=== PATIENT | female | born 1975 | race Caucasian/White ===

== ENCOUNTER 2017-10-14 16:40 | Emergency (ER) | payer MEDICARE, OTHER ==
[~2017-10-14] VITALS: Ht 167.6 cm; Wt 81.5 kg
[~2017-10-14 16:40] MED LIST: ASPI-1182 PO; BUSP15 PO; CARB200T6 PO; CLON0.5T4 PO; DOCU250C91 PO; FLUD.1 PO; FLUO-191 PO; LEVE500T53 PO; LEVO125 PO; QUET200XR PO
[2017-10-14] MEDS ORDERED: PERTUSS(ACELL),DIPH,TET VAC/PF 0.5 ML VIAL IM ONE (17:00)
[2017-10-14] MEDS ORDERED: LIDOCAINE HCL 1% 10 ML VIAL INJ ONE (17:00)
[2017-10-14 17:19] LABS: BASOPHILS % (AUTO) 0.9 % (0.0-2.0); EOSINOPHILS % (AUTO) 0.7 % (1.0-6.0); HEMATOCRIT 36.8 % (36-46); HEMOGLOBIN 12.5 g/dL (12.0-16.0); LYMPHOCYTES # (AUTO) 1.5 K/uL (1.0-4.8); LYMPHOCYTES % (AUTO) 21.1 % (22.0-44.0); MEAN CORPUSCULAR HEMOGLOBIN 29.3 pg (26.0-34.0); MEAN CORPUSCULAR HGB CONC 33.9 G/dL (31.0-37.0); MEAN CORPUSCULAR VOLUME 86 fL (80-100); MONOCYTES # (AUTO) 0.5 K/uL (0.1-1.0); MONOCYTES % (AUTO) 7.6 % (2.0-9.0); NEUTROPHILS # (AUTO) 4.8 K/uL (1.8-7.7); NEUTROPHILS % (AUTO) 69.7 % (40.0-70.0); PLATELET COUNT (AUTO) 134 K/uL (150-450); RED BLOOD CELL COUNT(AUTO) 4.27 MIL/uL (4.00-5.20); RED CELL DISTRIBUTION WIDTH 12.6 % (11.5-14.5)
[2017-10-14] MEDS ORDERED: LIDOCAINE HCL 4% 50 ML SOLUTION TP ONE (17:30)
[2017-10-14 17:37] LABS: ANION GAP 8 mmol/L (8-16); CALCIUM, TOTAL 9.1 mg/dL (8.8-10.5); CARBON DIOXIDE 29 mmol/L (22-29); CHLORIDE 104 mmol/L (98-107); CREATININE 0.68 mg/dL (0.60-1.30); GLOMERULAR FILTR. RATE CALC > 60 mL/min (>60); GLUCOSE,RANDOM 98 mg/dL (70-110); POTASSIUM 4.5 mmol/L (3.5-5.1); SODIUM SERUM 141 mmol/L (136-145); UREA NITROGEN, BLOOD 14 mg/dL (7-18)
[2017-10-14 17:41] LABS: ALANINE AMINOTRANSFERASE 19 U/L (12-78); ALBUMIN 3.6 g/dL (3.4-5.0); ALKALINE PHOSPHATASE 84 U/L (46-116); ASPARTATE AMINOTRANSFERASE 18 U/L (15-37); BILIRUBIN,TOTAL 0.2 mg/dL (0.1-1.0); TOTAL PROTEIN, SERUM 7.5 g/dL (6.4-8.2)
[2017-10-14] MEDS ORDERED: LIDOCAINE HCL 2% VISCOUS 15 ML SOLUTION UDCUP PO ONE (17:45)
[2017-10-14] MEDS ORDERED: LIDOCAINE HCL 2% 5 ML JELLY TP ONE (17:45)
[2017-10-14] MEDS ORDERED: LORazepam 1 MG TABLET PO ONE (18:15)
[2017-10-14] MEDS ORDERED: LORazepam 2 MG/ML VIAL ONE (19:02)
[2017-10-14] MEDS ORDERED: LORazepam 2 MG/ML VIAL IM ONE (19:15)
[2017-10-14 19:59] VITALS: BP 121/78
== END 2017-10-14 20:02 | disposition home or self-care (01) ==
LOC: EMS 16:42
DX: S01.01XA Laceration without foreign body of scalp, initial encounter (principal); G40.909 Epilepsy, unspecified, not intractable, without status epilepticus; F31.9 Bipolar disorder, unspecified; K21.9 Gastro-esophageal reflux disease without esophagitis; I10 Essential (primary) hypertension; E03.9 Hypothyroidism, unspecified; Z79.82 Long term (current) use of aspirin; Z79.899 Other long term (current) drug therapy; W22.8XXA Striking against or struck by other objects, initial encounter; Y93.89 Activity, other specified; Y92.89 Other specified places as the place of occurrence of the external cause; Y99.8 Other external cause status
CPT/HCPCS: 12004; 36415; 80053; 84703; 85025; 90471; 90715; 96372; 99284; G0482; J2060; J3490

== ENCOUNTER 2018-06-08 19:45 | Emergency (ER) | payer MEDICARE, OTHER ==
[~2018-06-08 19:45] MED LIST changes: +CLON0.5T12 PO; -CLON0.5T4 PO; -QUET200XR PO
== END 2018-06-08 21:03 | disposition left against medical advice (07) ==
LOC: EMS 19:46
DX: R07.9 Chest pain, unspecified (principal); Z53.21 Procedure and treatment not carried out due to patient leaving prior to being seen by health care provider

== ENCOUNTER 2022-09-08 11:19 | Emergency (ER) | payer MEDICARE, OTHER ==
[~2022-09-08] VITALS: Ht 167.6 cm; Wt 72.7 kg
[~2022-09-08 11:19] MED LIST changes: -ASPI-1182 PO; +ASPI-1444 PO; -CLON0.5T12 PO; +CLON0.5T4 PO; +DOCU-350 PO; -DOCU250C91 PO; +FLUO-177 PO; -FLUO-191 PO; +LEVE500T20 PO; -LEVE500T53 PO
[2022-09-08] MEDS ORDERED: LAMO100T66 PO (11:39)
[2022-09-08] MEDS ORDERED: LACT1CAP70 PO (11:39)
[2022-09-08] MEDS ORDERED: POLY250020 PO (11:39)
[2022-09-08] MEDS ORDERED: NITR-75 PO (11:39)
[2022-09-08] MEDS ORDERED: MIDO5TAB29 PO (11:39)
[2022-09-08] MEDS ORDERED: POTA8CAP20 PO (11:39)
[2022-09-08] MEDS ORDERED: CHOL400C8 PO (11:39)
[2022-09-08] MEDS ORDERED: CRAN450T10 PO (11:39)
[2022-09-08] MEDS ORDERED: SODI100037 PO (11:39)
[2022-09-08] MEDS ORDERED: TRAZ-257 PO (11:39)
[2022-09-08] MEDS ORDERED: ASCO500C18 PO (11:39)
[2022-09-08] MEDS ORDERED: POLY510P31 PO (13:12)
[2022-09-08] MEDS ORDERED: LAMO100 PO (13:12)
[2022-09-08] MEDS ORDERED: SODIUM CHLORIDE 0.9% 1,000 ML IV ONE (13:15)
[2022-09-08 13:50] LABS: BASOPHILS % (AUTO) 0.6 % (0.0-2.0); EOSINOPHILS % (AUTO) 0.3 % (1.0-6.0); HEMATOCRIT 39.2 % (36-46); LYMPHOCYTES # (AUTO) 0.9 K/uL (1.0-4.8); LYMPHOCYTES % (AUTO) 11.8 % (22.0-44.0); MEAN CORPUSCULAR HEMOGLOBIN 29.2 pg (26.0-34.0); MEAN CORPUSCULAR HGB CONC 33.2 G/dL (31.0-37.0); MEAN CORPUSCULAR VOLUME 88 fL (80-100); MONOCYTES % (AUTO) 12.6 % (2.0-9.0); NEUTROPHILS % (AUTO) 74.7 % (40.0-70.0); PLATELET COUNT (AUTO) 148 K/uL (150-450); RED BLOOD CELL COUNT(AUTO) 4.45 MIL/uL (4.00-5.20); RED CELL DISTRIBUTION WIDTH 12.6 % (11.5-14.5)
[2022-09-08 13:58] LABS: ANION GAP 7 mmol/L (8-16); CALCIUM, TOTAL 9.4 mg/dL (8.8-10.5); CARBON DIOXIDE 32 mmol/L (22-29); CHLORIDE 100 mmol/L (98-107); CREATININE 0.82 mg/dL (0.60-1.30); GLUCOSE,RANDOM 89 mg/dL (70-110); POTASSIUM 4.4 mmol/L (3.5-5.1); SODIUM SERUM 139 mmol/L (136-145); UREA NITROGEN, BLOOD 14 mg/dL (7-18)
[2022-09-08 13:59] LABS: GLOMERULAR FILTR. RATE CALC > 60 mL/min (>60)
[2022-09-08 14:04] LABS: ALANINE AMINOTRANSFERASE 18 U/L (12-78); ALBUMIN 4.3 g/dL (3.4-5.0); ALKALINE PHOSPHATASE 121 U/L (46-116); ASPARTATE AMINOTRANSFERASE 14 U/L (15-37); BILIRUBIN,TOTAL 0.5 mg/dL (0.1-1.0); LIPASE 86 U/L (73-393); TOTAL PROTEIN, SERUM 8.9 g/dL (6.4-8.2)
[2022-09-08 14:06] LABS: LACTIC ACID 1.3 mmol/L (0.4-2.0)
[2022-09-08 14:16] LABS: APPEARANCE,URINE CLEAR (CLEAR); BILIRUBIN,URINE NEGATIVE (NEGATIVE); GLUCOSE, URINE (UA) NEGATIVE (NEGATIVE); KETONES,URINE NEGATIVE (NEGATIVE); LEUKOCYTE ESTERASE ,URINE NEGATIVE (NEGATIVE); NITRATE,URINE NEGATIVE (NEGATIVE); OCCULT BLOOD,URINE TRACE (NEGATIVE); PH,URINE 5.5 (5.0-8.0); PROTEIN,URINE TRACE mg/dL (NEGATIVE); SPECIFIC GRAVITIY, URINE 1.032 (1.003-1.030); UROBILINOGEN,URINE <=1.0 mg/dL (<=1.0)
[2022-09-08 14:21] LABS: BACTERIA,URINE None Seen /HPF (None Seen); RBC,URINE 0-2 /HPF (0-2); SQUAMOUS EPITHELIAL CELL,UR Few /LPF (None Seen); WBC,URINE None Seen /HPF (0-5)
[2022-09-08 14:28] LABS: COVID AG,FIA SOURCE NASOPHARYNGEAL
[2022-09-08] MEDS ORDERED: CefTRIAXone 1 GM/DEXTROSE 50 ML IV ONE (16:15)
[2022-09-08 17:59] VITALS: BP 152/83
[2022-09-08] MEDS ORDERED: AZIT250T9 PO (19:03)
[2022-09-08] MEDS ORDERED: ACET-66 PO (19:03)
== END 2022-09-08 19:53 | disposition home or self-care (01) ==
LOC: EMS 11:26
DX: J18.9 Pneumonia, unspecified organism (principal); F79 Unspecified intellectual disabilities; F31.9 Bipolar disorder, unspecified; I10 Essential (primary) hypertension; E03.9 Hypothyroidism, unspecified; Z98.890 Other specified postprocedural states; Z20.822 Contact with and (suspected) exposure to COVID-19
CPT/HCPCS: 99285; 93970; 96365; 76705; 71045; 96361; 87426; 80053; 81001; 83605; 83690; 84484; 84703; 85025; 85379; 87040; 36415; 93005; J0696; J7030; 51701

== ENCOUNTER 2024-06-26 08:54 | Emergency (ER) | payer MEDICARE, OTHER ==
[~2024-06-26] VITALS: Ht 162.6 cm; Wt 72.7 kg
[~2024-06-26 08:54] MED LIST changes: +ACET-66 PO; +ASCO500C18 PO; +CARB-92 PO; -CARB200T6 PO; +CHOL10CA2 PO; +CRAN450T10 PO; -DOCU-350 PO; +DOCU-412 PO; +LACT1CAP70 PO; +LAMO-24 PO; +LEVE-71 PO; -LEVE500T20 PO; +MIDO5TAB29 PO; +NITR-75 PO; +POLY510P31 PO; +POTA8CAP20 PO; +SODI100037 PO; +TRAZ-257 PO
[2024-06-26 09:01] VITALS: BP 129/68; PULSE 70; RESP 18; TEMP 97.9; O2SAT 99
[2024-06-26] MEDS ORDERED: ASCO500 PO (09:08)
[2024-06-26] MEDS ORDERED: CRAN250C PO (09:08)
[2024-06-26] MEDS ORDERED: LACT1TAB14 PO (09:08)
[2024-06-26 09:18] LABS: COVID AG,FIA SOURCE NASAL SWAB
[2024-06-26 09:40] LABS: SARS-COV2 (COVID) ANTIGEN,FIA Negative (Negative)
[2024-06-26 09:41] LABS: INFLUENZA TYPE A NEGATIVE FOR TYPE A (NEGATIVE); INFLUENZA TYPE B POSITIVE FOR TYPE B (NEGATIVE)
[2024-06-26 10:24] LABS: APPEARANCE,URINE CLEAR (CLEAR); BILIRUBIN,URINE NEGATIVE (NEGATIVE); COLOR,URINE YELLOW (YELLOW); GLUCOSE, URINE (UA) NEGATIVE (NEGATIVE); KETONES,URINE NEGATIVE (NEGATIVE); LEUKOCYTE ESTERASE ,URINE NEGATIVE (NEGATIVE); NITRATE,URINE NEGATIVE (NEGATIVE); OCCULT BLOOD,URINE NEGATIVE (NEGATIVE); PH,URINE 5.5 (5.0-8.0); PROTEIN,URINE TRACE mg/dL (NEGATIVE); SPECIFIC GRAVITIY, URINE 1.027 (1.003-1.030); UROBILINOGEN,URINE <=1.0 mg/dL (<=1.0)
== END 2024-06-26 10:55 | disposition home or self-care (01) ==
LOC: EMS 09:02
DX: J11.1 Influenza due to unidentified influenza virus with other respiratory manifestations (principal); I10 Essential (primary) hypertension; E03.9 Hypothyroidism, unspecified; K21.9 Gastro-esophageal reflux disease without esophagitis; F79 Unspecified intellectual disabilities; Z79.899 Other long term (current) drug therapy; Z20.822 Contact with and (suspected) exposure to COVID-19
CPT/HCPCS: 81003; 84703; 87804; 99283

== ENCOUNTER 2024-06-30 15:49 | Emergency (ER) | payer MEDICARE, OTHER ==
[~2024-06-30] VITALS: Ht 167.6 cm; Wt 72.7 kg
[~2024-06-30 15:49] MED LIST changes: +ASCO500 PO; -ASCO500C18 PO; -ASPI-1444 PO; +CRAN250C PO; -CRAN450T10 PO; -LACT1CAP70 PO; +LACT1TAB14 PO
[2024-06-30 15:53] VITALS: TEMP 98.7
[2024-06-30] MEDS: ACETAMINOPHEN 500 MG TABLET PO ONE (19:43)
[2024-06-30 19:50] VITALS: BP 115/62; PULSE 75; RESP 20; O2SAT 99
== END 2024-06-30 21:54 | disposition home or self-care (01) ==
LOC: EMS 15:49
DX: S00.81XA Abrasion of other part of head, initial encounter (principal); S80.212A Abrasion, left knee, initial encounter; I10 Essential (primary) hypertension; K21.9 Gastro-esophageal reflux disease without esophagitis; E03.9 Hypothyroidism, unspecified; F31.9 Bipolar disorder, unspecified; Z79.899 Other long term (current) drug therapy; W01.0XXA Fall on same level from slipping, tripping and stumbling without subsequent striking against object, initial encounter; Y93.89 Activity, other specified; Y92.89 Other specified places as the place of occurrence of the external cause; Y99.8 Other external cause status
CPT/HCPCS: 99283

== ENCOUNTER 2025-07-15 17:14 | Emergency (ER) | payer MEDICARE, OTHER ==
[~2025-07-15] VITALS: Ht 162.6 cm; Wt 70.0 kg
[~2025-07-15 17:14] MED LIST changes: +NITR-104 PO; -NITR-75 PO
[2025-07-15] MEDS: LORazepam 2 MG/ML VIAL IVP ONE ×4 (19:07→22:49)
[2025-07-16] MEDS: LORazepam 2 MG/ML VIAL IVP ONE ×2 (00:37→03:20)
[2025-07-16 03:02] VITALS: BP 130/90; PULSE 68; RESP 18; TEMP 97.9; O2SAT 98
== END 2025-07-16 06:35 | disposition home or self-care (01) ==
LOC: EMS 17:14
DX: S09.90XA Unspecified injury of head, initial encounter (principal); E03.9 Hypothyroidism, unspecified; F31.9 Bipolar disorder, unspecified; G40.909 Epilepsy, unspecified, not intractable, without status epilepticus; I10 Essential (primary) hypertension; K21.9 Gastro-esophageal reflux disease without esophagitis; Z98.890 Other specified postprocedural states; W19.XXXA Unspecified fall, initial encounter; Y93.89 Activity, other specified; Y92.89 Other specified places as the place of occurrence of the external cause; Y99.8 Other external cause status
CPT/HCPCS: 99285; 96374; 96376 ×2; 96375; J2060 ×2; J1200